=== PATIENT | male | born 1955 | race Caucasian/White ===

== ENCOUNTER 2019-04-08 10:37 | Emergency (ER) | payer BC, OTHER, SELFPAY ==
[2019-04-08] MEDS ORDERED: PANTOPRAZOLE 40 MG INJ ONE (11:02)
[2019-04-08] MEDS ORDERED: NA CHLORIDE 0.9% 1,000 ML ONE (11:02)
[2019-04-08] MEDS ORDERED: FENTANYL CITR 100 MCG/2 ML ONE (11:02)
[2019-04-08 11:04] LABS: Arterial Blood Carboxyhemoglob 1.3 % (0-1.5); Blood Gas Oxyhemoglobin 97.2 % (94-97); Blood O2 Saturation 99.2 % (92-98.5)
--- NOTE | 2019-04-08 11:19 | RAD REPORT ---
EXAM DESCRIPTION: RAD - Chest Single View - 04/08/2019 10:51 am CLINICAL HISTORY: Chest pain, abdominal pain, vomiting COMPARISON: None. TECHNIQUE: AP portable chest image was obtained 1048 hours . FINDINGS: Lungs are clear. Heart and vasculature are normal. No measurable pleural effusion and no p neumothorax. No acute bony abnormality seen. No acute aortic findings suspected. IMPRESSION: No acute cardiopulmonary process.
[2019-04-08] MEDS ORDERED: ONDANSETRON 4 MG/2 ML VIAL ONE ×2 (11:21→13:30)
[2019-04-08 11:25] LABS: AST/SGOT 16 U/L (15-37); Albumin 4.9 g/dL (3.4-5.0); BUN Blood Urea Nitrogen 19 mg/dL (7-18); Bilirubin Total 0.7 mg/dL (0.2-1.0); Troponin (Emerg Dept Use Only) < 0.02 ng/mL (0.0-0.045)
[2019-04-08] MEDS ORDERED: PIPER/TAZO/NS 3.375gm 3.375 GM/100 ML BAG ONE (11:26)
[2019-04-08] MEDS ORDERED: MAGNESIUM SULFATE 1 gm IVPB 1 GM/100 ML BAG IV ONE (11:45)
[2019-04-08 11:58] LABS: RBC Red Blood Cell Count 4.45 M/uL (4.33-5.43)
[2019-04-08 11:59] LABS: Hematocrit 41.7 % (39.6-49.0)
[2019-04-08 12:00] LABS: Basophils % 0.3 % (0-1.3); Eosinophils % 0.1 % (0-4.4); Lymphocytes % 5.8 % (15.3-44.8); MPV 9.6 fL (7.6-11.3); Monocytes % 5.5 % (3.3-12.3)
[2019-04-08 12:01] LABS: Absolute Lymphocytes (CBC) 0.7 K/uL (0.7-4.9); Absolute Monocytes 0.7 K/uL (0.1-1.3); Absolute Neutrophil 10.5 K/uL (1.8-8.0)
--- NOTE | 2019-04-08 12:06 | RAD REPORT ---
EXAM DESCRIPTION: CT - Angio Aorta For Dissection - 04/08/2019 11:54 am CLINICAL HISTORY: Chest pain radiating to the back. ABDOMINAL DISTENTION COMPARISON: No comparisons TECHNIQUE: CT angiography of the aorta was performed with MIPs. All CT scans are performed using dose optimization technique as appropriate and may include automated exposure control or mA/KV adjustment according to patient size. FINDINGS: A left aortic arch is present with normal branching pattern of the great vessels.No acute aortic finding is seen such as aneurysm, penetrating ulcer or dissection. Atherosclerosis is present throughout the thoracic abdominal aorta. The celiac axis, SMA, CHARU and renal arteries are patent. No evidence of pulmonary embolism. The lungs are emphysematous but clear. Small hiatal hernia. The liver demonstrates no focal mass or biliary dilatation.The spleen, pancreas, adrenal glands and r ight kidney are within normal limits for arterial phase imaging.Solid mass is seen the inferior midpo le left kidney measuring 3.4 x 3.3 cm. No bowel obstruction, free fluid or abscess.No pathologic enlarged lymphadenopathy identified. No fracture or worrisome bone lesion seen. IMPRESSION: No acute aortic finding is demonstrated. Solid left renal mass (3.4 x 3.3 cm) likely representing renal cell carcinoma.
[2019-04-08 12:10] LABS: Protime INR 1.04
[2019-04-08 12:45] LABS: Blood Morphology Comment NOT SEEN (NOT SEEN); Platelet Estimate ADEQ
[2019-04-08 13:13] LABS: Urine Blood NEGATIVE (NEG); Urine Glucose NEGATIVE (NEG); Urine Protein NEGATIVE (NEG); Urine Specific Gravity 1.015 (1.005-1.030); Urine pH 8.5 (5.0-7.0)
[2019-04-08 13:32] LABS: Potassium 3.9 mmol/L (3.5-5.1); Sodium Level 143 mmol/L (136-145)
[2019-04-08 13:33] LABS: Bicarbonate 18 mmol/L (21-32); Glucose Level 186 mg/dL (74-106)
--- NOTE | 2019-04-08 13:33 | ER ---
Nurse's Notes [facility] Name: Devang Whitney Age: 63 yrs Sex: Male : 1955 Arrival Date: 04/08/2019 Time: 10:39 Bed 4 Private MD: Diagnosis: Vomiting;Abdominal tenderness-right 3.3x3.4 cm solid renal mass, cw renal cell carcinoma;Dyspnea;Essential (primary) hypertension;Headache;Unspecified kidney failure-insufficency Presentation: 04/08 10:45 Presenting complaint: Patient states: vomiting started at 0700 this morning, feels like iw he ruptured something inside, appears pale, denies chest pain, c/o extreme nausea, and dizziness, hx of vertigo. Transition of care: patient was not received from another setting of care. Onset of symptoms was April 08, 2019. Risk Assessment: Do you want to hurt yourself or someone else? Patient reports no desire to harm self or others. Initial Sepsis Screen: Does the patient meet any 2 criteria? No. Patient's initial sepsis screen is negative. Does the patient have a suspected source of infection? No. Patient's initial sepsis screen is negative. Care prior to arrival: None. 10:45 Method Of Arrival: Wheelchair iw 10:45 Acuity: POLLY 2 iw Triage Assessment: 10:42 General: Appears distressed, Behavior is cooperative, agitated. Pain:. Neuro: Reports tw2 dizziness. Respiratory: Reports shortness of breath at rest Onset: The symptoms/episode began/occurred this morning, the patient has moderate shortness of breath. Respiratory: Airway is patent Respiratory effort is even, labored, Respiratory pattern is tachypnea. GI: Reports nausea, vomiting. Historical: - Allergies: 10:48 No Known Allergies; iw - Home Meds: 10:48 Zoloft Oral [Active]; iw - PMHx: 10:48 vertigo; iw - PSHx: 10:48 None; iw - Immunization history:: Adult Immunizations unknown. - Family history:: not pertinent. - Ebola Screening: : Patient negative for fever greater than or equal to 101.5 degrees Fahrenheit, and additional compatible Ebola Virus Disease symptoms Patient denies exposure to infectious person Patient denies travel to an Ebola-affected area in the 21 days before illness onset No symptoms or risks identified at this time. - Social history:: Smoking status: unknown Patient/guardian denies using. Screenin:47 Abuse screen: Denies threats or abuse. Nutritional screening: No deficits noted. tw2 Tuberculosis screening: No symptoms or risk factors identified. Fall Risk None identified. Assessment: 10:56 General: Appears in no apparent distress. uncomfortable, Behavior is cooperative, hj anxious. Pain: Complains of pain in left upper quadrant and right upper quadrant and epigastric area Pain currently is 10 out of 10 on a pain scale. Neuro: Level of Consciousness is awake, alert, obeys commands, Oriented to person, place, time, situation, Reports dizziness. Cardiovascular: Rhythm is. Respiratory: Airway is patent Respiratory effort is even, unlabored, Respiratory pattern is tachypnea GI: Reports upper abdominal pain. : No signs and/or symptoms were reported regarding the genitourinary system. EENT: No signs and/or symptoms were reported regarding the EENT system. Derm: No signs and/or symptoms reported regarding the dermatologic system. Musculoskeletal: No signs and/or symptoms reported regarding the musculoskeletal system. 11:00 Reassessment: Patient and/or family updated on plan of care and expected duration. Pain hj level reassessed. pt still restless and states :just put me to sleep, its hard for me to breathe. 11:00 Reassessment: RT at in room for ABG;. hj 11:30 Reassessment: Patient and/or family updated on plan of care and expected duration. Pain hj level reassessed. wheeled to CT for CT Angio;. 11:50 Reassessment: wheeled back from CT:. hj 12:30 Reassessment: Patient and/or family updated on plan of care and expected duration. Pain hj level reassessed. Patient is alert, oriented x 3, equal unlabored respirations, skin warm/dry/pink. awaiting POC;. 13:30 Reassessment: Patient and/or family updated on plan of care and expected duration. Pain hj level reassessed. Patient is alert, oriented x 3, equal unlabored respirations, skin warm/dry/pink. awaiting results; in room;. 14:25 Reassessment: awaiting CT head and transfer orders;. hj 15:30 Reassessment: RECD REPORT FROM DARRLE RN. [facility] TRANSFER PENDING, VS STABLE ON MONITOR. bp 16:15 Reassessment: GIVING REPORT TO [facility], ADMIN APPROVAL PENDING. bp 16:36 Reassessment: REPORT TO ANDREA JONES FOR TRANSFER TO [facility]. TRANSPORT PENDING. bp 18:01 Reassessment: PT BRETT WITH [facility]. bp Vital Signs: 10:46 BP 198 / 81; Pulse 71; Resp 26 S; Pulse Ox 100% on R/A; Weight 97.07 kg; Pain 0/10; iw 10:55 BP 192 / 80; Pulse 80; Resp 18; Pulse Ox 100% on R/A; hj 11:25 BP 149 / 106; Pulse 73; Resp 18; Pulse Ox 100% on 2 lpm NC; hj 12:12 BP 150 / 99; Pulse 72; Resp 18; Pulse Ox 100% on 2 lpm NC; hj 12:42 BP 148 / 100; Pulse 85; Resp 18; Pulse Ox 98% on 2 lpm NC; hj 12:49 BP 184 / 97; Pulse 73; Resp 18; Pulse Ox 100% on 2 lpm NC; hj 13:49 BP 205 / 103; Pulse 93; Resp 18; Temp 98.3; Pulse Ox 100% on 2 lpm NC; em1 14:26 BP 200 / 90; Pulse 85; Resp 18; Pulse Ox 100% on R/A; hj 15:09 BP 187 / 75; Pulse 81; Resp 18; Pulse Ox 100% on 2 lpm NC; hj 15:35 BP 185 / 72; Pulse 85; Resp 18; Pulse Ox 100% on R/A; hj 16:36 BP 175 / 87; Pulse 83; Resp 18; Temp 98.3; Pulse Ox 100% ; bp ED Course: 10:39 Patient arrived in ED. as 10:40 Justyna Spencer FNP-C is [facility]. snw 10:40 Geraldo Fishman MD is Attending Physician. snw 10:42 Placed in gown. Bed in low position. monitor and storage bin tender on. Pulse ox on. NIBP on. tw2 JOSE Jansen and Dr. Fishman at bedside at this time. 10:45 Initial lab(s) drawn, by me, sent to lab. T\T\S collected, blood band applied to patient. em Inserted saline lock: 20 gauge in left antecubital area, using aseptic technique. Blood collected. 10:45 EKG done, by ED staff, reviewed by Geraldo Fishman MD. jb1 10:46 Triage completed. iw 10:46 Jose Nuñez, RN is Primary Nurse. hj 10:46 Arm band placed on. iw 10:50 XRAY Chest (1 view) In Process Unspecified. EDMS 10:57 Radiology exam delayed due to lab results not completed at this time. (BUN/Creatinine). kw1 11:54 CT Aorta for Dissection In Process Unspecified. EDMS 13:50 CT Head Brain wo Cont In Process Unspecified. EDMS 16:21 Primary Nurse role handed off by Jose Nuñez, RN bp 16:21 Darvin Melendez, KAREN is Primary Nurse. bp 16:37 No provider procedures requiring assistance completed. Patient transferred, IV remains bp in place. Administered Medications: 10:45 Drug: ProTONIX 40 mg Route: IVP; Site: left antecubital; hj 11:17 Follow up: Response: No adverse reaction hj 10:46 Drug: NS 0.9% 1000 ml Route: IV; Rate: 125 ml/hr; Site: left antecubital; hj 10:46 Drug: fentaNYL (PF) 25 mcg Route: IVP; Site: left antecubital; hj 11:17 Follow up: Response: No adverse reaction; Pain is decreased hj 11:05 Drug: Zofran 4 mg Route: IVP; Site: left antecubital; hj 11:17 Follow up: Response: No adverse reaction hj 11:05 Drug: fentaNYL (PF) 25 mcg Route: IVP; Site: left antecubital; hj 11:16 Follow up: Response: No adverse reaction; Nausea is decreased hj 11:07 Drug: Zosyn 3.375 grams Route: IVPB; Infused Over: 60 mins; Site: left antecubital; hj 11:27 Drug: NS 0.9% 1000 ml Route: IV; Rate: 1 bolus; Site: left antecubital; hj 11:30 Drug: Magnesium Sulfate 1 grams Route: IVPB; Infused Over: 1 hrs; Site: left hj antecubital; 15:11 Follow up: IV Status: Completed infusion; IV Intake: 100ml hj 13:45 Drug: Zofran 4 mg Route: IVP; Site: left antecubital; hj 15:13 Follow up: Response: No adverse reaction; Nausea is decreased hj Intake: 15:11 IV: 100ml; Total: 100ml. hj Outcome: 13:32 ER care complete, transfer ordered by MD. alberto 18:01 Transferred by ground EMS to [facility] bp 18:01 Condition: stable 18:01 Instructed on the need for transfer. 18:02 Patient left the ED. bp Signatures: Dispatcher [employer] EDSami Villalobos jb1 Geraldo Fishman MD MD cha Therrien, Shelly, MANAGER UTILITIES-C MANAGER UTILITIES-Csnw Bj Kaur, CLINICAL DATA ASSISTANT CLINICAL DATA ASSISTANT em Lainey Jules Irene, RN RN iw Aroldo Jules em1 Jose Nuñez RN RN Cece Velasquez RN RN tw2 Darvin Melendez RN RN Christine Rhodes 1 Corrections: (The following items were deleted from the chart) 11:26 11:25 BP 149 / 106; Pulse 73bpm; Resp 18bpm; Pulse Ox 100% Non-rebreather mask; hj hj 12:12 11:25 BP 149 / 106; Pulse 73bpm; Resp 18bpm; Pulse Ox 100%; hj hj 12:45 12:42 BP 121 / 67; Pulse 85bpm; Resp 18bpm; Pulse Ox 98% 2 lpm Nasal Cannula; hj hj
--- NOTE | 2019-04-08 13:33 | EDPHYS ---
Physician Documentation [facility] Name: Devang Whitney Age: 63 yrs Sex: Male : 1955 Arrival Date: 04/08/2019 Time: 10:39 Bed 4 Private MD: Geraldo Branham HPI: 04/08 10:44 This 63 yrs old Male presents to ER via Unassigned with complaints of remy Breathing Difficulty. 10:44 The patient has shortness of breath at rest, with light activity. Onset: The remy symptoms/episode began/occurred this morning. Duration: The symptoms are continuous, and are steadily getting worse. The patient's shortness of breath is aggravated by coughing, supine position, talking. Associated signs and symptoms: Pertinent positives: chest pain, diaphoresis. Severity of symptoms: At their worst the symptoms were moderate in the emergency department the symptoms are unchanged. The patient has not experienced similar symptoms in the past. Historical: - Allergies: 10:48 No Known Allergies; iw - Home Meds: 10:48 Zoloft Oral [Active]; iw - PMHx: 10:48 vertigo; iw - PSHx: 10:48 None; iw - Immunization history:: Adult Immunizations unknown. - Family history:: not pertinent. - Ebola Screening: : Patient negative for fever greater than or equal to 101.5 degrees Fahrenheit, and additional compatible Ebola Virus Disease symptoms Patient denies exposure to infectious person Patient denies travel to an Ebola-affected area in the 21 days before illness onset No symptoms or risks identified at this time. - Social history:: Smoking status: unknown Patient/guardian denies using. ROS: 10:45 Eyes: Negative for injury, pain, redness, and discharge, ENT: Negative for injury, remy pain, and discharge, Neck: Negative for injury, pain, and swelling, Back: Negative for injury and pain, : Negative for injury, bleeding, discharge, and swelling, MS/Extremity: Negative for injury and deformity, Neuro: Negative for headache, weakness, numbness, tingling, and seizure, Psych: Negative for depression, anxiety, suicide ideation, homicidal ideation, and hallucinations, Allergy/Immunology: Negative for hives, rash, and allergies, Endocrine: Negative for neck swelling, polydipsia, polyuria, polyphagia, and marked weight changes. 10:45 Constitutional: Positive for malaise. 10:45 Cardiovascular: Positive for chest pain. 10:45 Respiratory: Positive for cough, shortness of breath, at rest. 10:45 Abdomen/GI: Positive for abdominal pain, nausea and vomiting, abdominal cramps. 10:45 Skin: Positive for diaphoresis, pallor. Exam: 10:45 Head/Face: Normocephalic, atraumatic. Eyes: Pupils equal round and reactive to light, remy extra-ocular motions intact. Lids and lashes normal. Conjunctiva and sclera are non-icteric and not injected. Cornea within normal limits. Periorbital areas with no swelling, redness, or edema. ENT: Nares patent. No nasal discharge, no septal abnormalities noted. Tympanic membranes are normal and external auditory canals are clear. Oropharynx with no redness, swelling, or masses, exudates, or evidence of obstruction, uvula midline. Mucous membranes moist. Neck: Trachea midline, no thyromegaly or masses palpated, and no cervical lymphadenopathy. Supple, full range of motion without nuchal rigidity, or vertebral point tenderness. No Meningismus. Chest/axilla: Normal chest wall appearance and motion. Nontender with no deformity. No lesions are appreciated. Respiratory: Lungs have equal breath sounds bilaterally, clear to auscultation and percussion. No rales, rhonchi or wheezes noted. No increased work of breathing, no retractions or nasal flaring. Back: No spinal tenderness. No costovertebral tenderness. Full range of motion. Male : Normal genitalia with no discharge or lesions. MS/ Extremity: Pulses equal, no cyanosis. Neurovascular intact. Full, normal range of motion. Neuro: Awake and alert, GCS 15, oriented to person, place, time, and situation. Cranial nerves II-XII grossly intact. Motor strength 5/5 in all extremities. Sensory grossly intact. Cerebellar exam normal. Normal gait. Psych: Awake, alert, with orientation to person, place and time. Behavior, mood, and affect are within normal limits. 10:45 Constitutional: The patient appears in obvious distress, mildly distressed, moderately distressed. 10:45 Cardiovascular: Rate: normal, Rhythm: regular, Pulses: Pulses are 4+ in bilateral radial, brachial, femoral, popliteal, posterior tibial and and dorsalis pedis arteries.. 10:45 Respiratory: mild respiratory distress is noted, Respirations: labored breathing, that is mild, Breath sounds: are clear throughout, Respiratory rate: 26 10:45 Abdomen/GI: Inspection: abdomen appears normal, Bowel sounds: normal, Palpation: mild abdominal tenderness, in the epigastric area, right upper quadrant and left upper quadrant, Liver: no appreciated palpable abnormalities, Hernia: not appreciated. 10:45 Skin: Appearance: Color: pale, Temperature: cool, Moisture: diaphoretic, petechiae, not noted, ecchymosis, not noted, flushing, not noted, diaphoresis is noted. 10:46 Eyes: Pupils equal round and reactive to light, extra-ocular motions intact. Lids and snw lashes normal. Conjunctiva and sclera are non-icteric and not injected. Cornea within normal limits. Periorbital areas with no swelling, redness, or edema. ENT: Nares patent. No nasal discharge, no septal abnormalities noted. Tympanic membranes are normal and external auditory canals are clear. Oropharynx with no redness, swelling, or masses, exudates, or evidence of obstruction, uvula midline. Mucous membranes moist. Neck: Trachea midline, no thyromegaly or masses palpated, and no cervical lymphadenopathy. Supple, full range of motion without nuchal rigidity, or vertebral point tenderness. No Meningismus. Chest/axilla: Normal chest wall appearance and motion. Nontender with no deformity. No lesions are appreciated. Cardiovascular: Regular rate and rhythm with a normal S1 and S2. No gallops, murmurs, or rubs. Normal PMI, no JVD. No pulse deficits. 10:46 Abdomen/GI: Soft, non-tender, with normal bowel sounds. No distension or tympany. No guarding or rebound. No evidence of tenderness throughout. Back: No spinal tenderness. No costovertebral tenderness. Full range of motion. 10:46 Constitutional: The patient appears alert, anxious, diaphoretic, in obvious distress, moderately distressed, pale, restless. 10:46 Head/face: centrally cyanotic. 10:46 Respiratory: the patient does not display signs of respiratory distress, Respirations: shallow respirations, tachypnea, Breath sounds: are clear throughout. 10:46 Skin: Appearance: Color: pale, Temperature: warm, Moisture: diaphoretic, swelling, is not appreciated. 10:46 Neuro: Orientation: is normal, Mentation: is normal, Memory: is normal, seizure activity, is not displayed by the patient, Abnormal movements: there are no abnormal movements. 10:48 ECG was reviewed by the Attending Physician. formerly [facility] Vital Signs: 10:46 BP 198 / 81; Pulse 71; Resp 26 S; Pulse Ox 100% on R/A; Weight 97.07 kg; Pain 0/10; iw 10:55 BP 192 / 80; Pulse 80; Resp 18; Pulse Ox 100% on R/A; hj 11:25 BP 149 / 106; Pulse 73; Resp 18; Pulse Ox 100% on 2 lpm NC; hj 12:12 BP 150 / 99; Pulse 72; Resp 18; Pulse Ox 100% on 2 lpm NC; hj 12:42 BP 148 / 100; Pulse 85; Resp 18; Pulse Ox 98% on 2 lpm NC; hj 12:49 BP 184 / 97; Pulse 73; Resp 18; Pulse Ox 100% on 2 lpm NC; hj 13:49 BP 205 / 103; Pulse 93; Resp 18; Temp 98.3; Pulse Ox 100% on 2 lpm NC; em1 14:26 BP 200 / 90; Pulse 85; Resp 18; Pulse Ox 100% on R/A; hj 15:09 BP 187 / 75; Pulse 81; Resp 18; Pulse Ox 100% on 2 lpm NC; hj 15:35 BP 185 / 72; Pulse 85; Resp 18; Pulse Ox 100% on R/A; hj 16:36 BP 175 / 87; Pulse 83; Resp 18; Temp 98.3; Pulse Ox 100% ; bp MDM: 10:41 Patient medically screened. formerly [facility] 10:44 Patient medically screened. [facility] 10:49 Data reviewed: vital signs, nurses notes, lab test result(s), EKG, radiologic studies, [facility] CT scan, plain films. 04/08 10:40 Order name: Basic Metabolic Panel; Complete Time: 16:09 [facility] 04/08 10:40 Order name: CBC with Diff; Complete Time: 13:23 [facility] 04/08 10:40 Order name: LFT's; Complete Time: 16:09 [facility] 04/08 10:40 Order name: Magnesium; Complete Time: 16:09 [facility] 04/08 10:40 Order name: NT PRO-BNP; Complete Time: 16:09 snw 04/08 10:40 Order name: PT-INR; Complete Time: 13:23 snw 04/08 10:40 Order name: Troponin (emerg Dept Use Only); Complete Time: 16:09 snw 04/08 10:40 Order name: TS; Complete Time: 13:23 snw 04/08 10:44 Order name: ABG; Complete Time: 11:26 [facility] 04/08 10:44 Order name: Urine Culture [facility] 04/08 11:19 Order name: Lipase; Complete Time: 16:09 EDMS 04/08 12:07 Order name: ABO/RH no charge; Complete Time: 12:10 EDMS 04/08 12:44 Order name: Manual Differential; Complete Time: 13: EDMI 04/08 10:40 Order name: XRAY Chest (1 view); Complete Time: 11:26 sn 04/08 10:40 Order name: EKG; Complete Time: 10:41 [facility] 04/08 10:40 Order name: Cardiac monitoring; Complete Time: 10:42 [facility] 04/08 10:40 Order name: EKG - Nurse/Tech; Complete Time: 10:42 [facility] 04/08 10:40 Order name: CT Aorta for Dissection; Complete Time: 12:10 [facility] 04/08 13:09 Order name: Urine Dipstick--Ancillary (enter results); Complete Time: 13:23 [facility] 04/08 13:28 Order name: CT Head Brain wo Cont; Complete Time: 16:09 [facility] 04/08 10:40 Order name: IV Saline Lock; Complete Time: 10:54 [facility] 04/08 10:40 Order name: Labs collected and sent; Complete Time: 10:54 [facility] 04/08 10:40 Order name: O2 Per Protocol; Complete Time: 10:42 [facility] 04/08 10:40 Order name: O2 Sat Monitoring; Complete Time: 10:43 [facility] 04/08 10:44 Order name: IV Saline Lock - Large Bore; Complete Time: 10:45 [facility] 04/08 10:44 Order name: Urine Dipstick-Ancillary (obtain specimen); Complete Time: 13:09 [facility] Administered Medications: 10:45 Drug: ProTONIX 40 mg Route: IVP; Site: left antecubital; hj 11:17 Follow up: Response: No adverse reaction hj 10:46 Drug: NS 0.9% 1000 ml Route: IV; Rate: 125 ml/hr; Site: left antecubital; hj 10:46 Drug: fentaNYL (PF) 25 mcg Route: IVP; Site: left antecubital; hj 11:17 Follow up: Response: No adverse reaction; Pain is decreased hj 11:05 Drug: Zofran 4 mg Route: IVP; Site: left antecubital; hj 11:17 Follow up: Response: No adverse reaction hj 11:05 Drug: fentaNYL (PF) 25 mcg Route: IVP; Site: left antecubital; hj 11:16 Follow up: Response: No adverse reaction; Nausea is decreased hj 11:07 Drug: Zosyn 3.375 grams Route: IVPB; Infused Over: 60 mins; Site: left antecubital; hj 11:27 Drug: NS 0.9% 1000 ml Route: IV; Rate: 1 bolus; Site: left antecubital; hj 11:30 Drug: Magnesium Sulfate 1 grams Route: IVPB; Infused Over: 1 hrs; Site: left hj antecubital; 15:11 Follow up: IV Status: Completed infusion; IV Intake: 100ml hj 13:45 Drug: Zofran 4 mg Route: IVP; Site: left antecubital; hj 15:13 Follow up: Response: No adverse reaction; Nausea is decreased hj Disposition: 10:48 Co-signature as Attending Physician, Geraldo Fishman MD I agree with the assessment and remy plan of care. Disposition: 04/08/19 13:[address] [facility]. Diagnosis are Vomiting, Abdominal tenderness - right 3.3x3.4 cm solid renal mass, cw renal cell carcinoma, Dyspnea, Essential (primary) hypertension, Headache, Unspecified kidney failure - insufficency. - Reason for transfer: Higher level of care. - Accepting physician is to ar. - Condition is Fair. - Problem is new. - Symptoms have improved. Signatures: Dispatcher [employer] Geraldo Torrez MD MD cha Therrien, Shelly, MISSILE MECHANIC-C MISSILE MECHANIC-Csnw Khushbu Trejo RN RN iw Joaquin, Henry, RN RN hj Peltier, Brian, RN RN bp Corrections: (The following items were deleted from the chart) 11:20 10:44 LIPASE+C.LAB.BRZ ordered. EDMI EDMS 16:25 13:32 04/08/2019 13:32 Transfer ordered to [facility]. Diagnosis is Vomiting; Abdominal tenderness; Dyspnea; Essential (primary) hypertension; Headache; Unspecified kidney failure - insufficency. Reason for transfer: Higher level of care. Accepting physician is to ar. Condition is Fair. Problem is new. Symptoms have improved. [facility] 18:02 16:25 04/08/2019 13:32 Transfer ordered to [facility]. Diagnosis is Vomiting; Abdominal tenderness - right 3.3x3.4 cm solid renal mass, cw renal cell carcinoma; Dyspnea; Essential (primary) hypertension; Headache; Unspecified kidney failure - insufficency. Reason for transfer: Higher level of care. Accepting physician is to ar. Condition is Fair. Problem is new. Symptoms have improved. [facility]
[2019-04-08 13:34] LABS: ALT/SGPT 21 U/L (12-78); Alkaline Phosphatase 83 U/L (45-117)
[2019-04-08 13:35] LABS: Bilirubin Direct 0.2 mg/dL (0-0.2); Protein, Total 7.7 g/dL (6.4-8.2)
[2019-04-08 13:36] LABS: NT PRO-BNP 350 pg/mL (<125)
[2019-04-08 13:39] LABS: Magnesium 1.7 mg/dL (1.8-2.4)
[2019-04-08 13:41] LABS: Lipase 108 U/L (73-393)
--- NOTE | 2019-04-08 14:29 | RAD REPORT ---
EXAM DESCRIPTION: CT - Head Brain Wo Cont - 04/08/2019 2:13 pm CLINICAL HISTORY: Headache and dizziness COMPARISON: None. TECHNIQUE: Computed axial tomography of the head was obtained. IV contrast was not requested. All CT scans are performed using dose optimization technique as appropriate and may include automated exposure control or mA/KV adjustment according to patient size. FINDINGS: Contrast from an earlier CT examination is present within the vascular system. An intracranial bleed is not seen . The ventricles are normal in caliber. No extra-axial fluid collection is noted. Fluid within the sinuses/ mastoids is not seen. IMPRESSION: No acute intracranial abnormality is seen. If patient's symptoms persist MRI of the bra in would be recommended.
--- NOTE | 2019-04-09 09:20 | EKG ---
Test Date: 2019-04-08 Test Time: 11:35:14 Physical Therapy Manager: CRISTIANO MEASUREMENT RESULTS: Intervals: Rate: 72 [place]: 174 QRSD: 82 QT: 418 QTc: 457 [place]: P: 70 [place]: 174 QRS: 32 T: 4 INTERPRETIVE STATEMENTS: Sinus rhythm with marked sinus arrhythmia Possible Left atrial enlargement Nonspecific T wave abnormality Abnormal ECG Compared to ECG 04/08/2019 10:41:54 No significant changes Electronically Signed On 04-09-19 09:19:38 CDT by Jason Herron
--- NOTE | 2019-04-09 09:20 | EKG ---
Test Date: 2019-04-08 Test Time: 10:41:54 Hospital Insurance Clerk: CRISTIANO MEASUREMENT RESULTS: Intervals: Rate: 66 [place]: 172 QRSD: 88 QT: 432 QTc: 452 [place]: P: 65 [place]: 172 QRS: 26 T: 30 INTERPRETIVE STATEMENTS: Sinus rhythm with marked sinus arrhythmia Nonspecific T wave abnormality Abnormal ECG Compared to ECG 04/08/2019 10:40:26 T-wave abnormality now present ST (T wave) deviation no longer present Electronically Signed On 04-09-19 09:19:45 CDT by Jason Herron
== END 2019-04-08 18:02 ==
LOC: ER 10:37
DX: R11.10 Vomiting, unspecified (principal); C64.9 Malignant neoplasm of unspecified kidney, except renal pelvis; N19 Unspecified kidney failure; I10 Essential (primary) hypertension; R51 Headache
CPT/HCPCS: 36415; 70450; 71045; 71275; 74175; 80048; 80076; 81003; 82805; 83690; 83735; 83880; 84484; 85025; 85610; 86850; 86900; 86901; 87086; 87088; 93005; 96365; 96366; 96375; 99285; C9113; J2405; J2543; J3010; J3475; J7030; Q9967

== ENCOUNTER 2022-04-19 13:21 | Observation (INO) | payer OTHER ==
--- OUTSIDE RECORDS SUMMARY | 2022-04-19 13:23 | XMS REPORT | Continuity of Care Document ---
:1955 Author Organization [facility] t Address [facility] [address] [place] [address] Care Team Providers Name Role Phone Minal Cai Attending Clinician Minal GRANT Attending Clinician Unavailable Minal GRANT Admitting Clinician Unavailable Payers Payer Name Policy Type Policy Number Effective Date Expiration Date Rohit HAMPTON [id number] 2018 ADMINISTRATION 00:00:00 Problems Condition Condition Condition Status Onset Resolution Last Treating Co mments Source Name Details Category Date Date Treatment Clinician Date No known No known Disease Unive rs active active ity of problems problems [facility] Allergies, Adverse Reactions, Alerts Allergy Allergy Status Severity Reaction(s) Onset Inactive Treating Comm ents Source Name Type Date Date Clinician NO KNOWN Drug Active Univers ALLERGIE Class ity of S [facility] Social History Social Habit Start Date Stop Date Quantity Comments Source Sex Assigned At Uni versity [facility] Smoking Status Start Date Stop Date Source Unknown if ever smoked Universit y [facility] Medications Ordered Filled Start Stop Current Ordering Indication Dosage Frequency Signature Comments Components Source Medication Medication Date Date Medication? Clinician (SIG) Name Name morpHINE 2019- No 4mg 4 mg, Slow Un yaya injection 4 07-16 IV Push, ity of mg 20:45: 19:45 ONCE, 1 [place] 00 :00 dose, Mon Medical 07/16/19 at Branch 1545, STAT ondansetron 2018- No 4mg 4 mg, Slow Univers (ZOFRAN 07-16 IV Push, ity of (PF)) 19:30: 18:29 ONCE, 1 [place] injection 4 00 :00 dose, Mon Med ical mg 07/16/19 at Branch 1430, LAUREN cefTRIAXone 2019- No 1000mg 1,000 mg, Univers (ROCEPHIN) 8-19 08-19 IV ity of 1,000 mg in 19:30: 19:02 Piggyback, [place] NaCl 0.9% 00 :00 ONCE, 1 Medical (NS) 50 mL dose, [facility] ch MINI-BAG 07/16/19 at 1430, 50 mL
Reas on for Anti-Infec tive: Empiric Therapy for Suspected Infection< br>Empiric Therapy Site: Abdominal< br>Duratio n of therapy: 72 hours morpHINE 2019- No 4mg 4 mg, Slow Un yaya injection 4 07-16 IV Push, ity of mg 19:30: 18:29 ONCE, 1 [place] 00 :00 dose, [facility] Medical 07/16/19 at Branch 1430, STAT metoclopram 2019- No 10mg 10 mg, Uni vers ivory HCl 07-16 Slow IV ity of (REGLAN) 18:45: 17:33 Push, [place] injection 00 :00 ONCE, 1 Medical 10 mg dose, [facility] 07/16/19 at 1345, LAUREN ondansetron 2019- No 4mg 4 mg, Slow Univers (ZOFRAN 07-16 IV Push, ity of (PF)) 18:15: 17:07 ONCE, 1 [place] injection 4 00 :00 dose, [facility] Med ical mg 07/16/19 at Branch 1315, LAUREN FENTanyl PF 2019- No 50ug 50 mcg, Un yaya (SUBLIMAZE 07-16 Slow IV ity o f (PF)) 18:15: 17:07 Push, [place] injection 00 :00 ONCE, 1 Medical 50 mcg dose, [facility] 07/16/19 at 1315, Routine NaCl 0.9% 2019- No 1000mL at 999 Uni vers (NS) bolus 07-16 mL/hr, ity of infusion 17:30: 18:38 1,000 mL, Ariel as 1,000 mL 00 :00 IV Medical Infusion, [place] ONCE, 1 dose, [facility] 07/16/19 at 1230, LAUREN sertraline Yes Take by Uni vers HCl (ZOLOFT 07-16 mouth. ity of ORAL) 16:45: [place] 52 [facility] Branch Vital Signs Vital Name Observation Time Observation Value Comments Source Systolic blood 2019-07-16 19:44:44 188 mm[Hg] [facility] [place] Diastolic blood 2019-07-16 19:44:44 92 mm[Hg] [facility] Heart rate 2019-07-16 19:44:44 78 /min [facility] Respiratory rate 2019-07-16 19:44:44 16 /min [facility] Oxygen saturation in 2019-07-16 19:44:44 98 /min [facility] Arterial blood by [facility] Pulse oximetry Branch Body temperature 2019-07-16 16:39:00 37.83 [facility] Body height 2019-07-16 16:39:00 182.9 cm [facility] Body weight 2019-07-16 16:39:00 97.07 kg [facility] BMI 2019-07-16 16:39:00 29.02 kg/m2 [facility] Procedures Procedure Date / Time Performing Clinician Source Performed CT ABDOMEN PELVIS WO 2019-07-16 17:50:18 Leonard Grant [facility] COMP. METABOLIC PANEL 2019-07-16 17:05:00 Leonard Grant [facility] ([id number]) [facility] PROTHROMBIN TIME / INR 2019-07-16 17:05:00 Leonard Grant [facility] ACTIVATED PARTIAL 2019-07-16 17:05:00 Leonard Grant [facility] CBC WITH DIFFERENTIAL 2019-07-16 17:05:00 Leonard Grant [facility] LACTIC ACID WHOLE BLOOD 2019-07-16 17:04:00 Leonard [facility] Encounters Start End Encounter Admission Attending Care Care Encounter Source Date/Time Date/Time Type Type Clinicians Facility Department ID 2019-07-16 2019-07-16 Emergency [facility] [id number] Univers 11:38:56 15:06:00 Leonard Abdi [id number] i ty [facility] [id number] [facility] [id number] [facility] 084 Branch 2019-07-16 2019-07-16 Emergency X JUANITA RUST ERT [id number] 59 [facility] 11:38:56 15:06:00 LEON[facility] [place] [facility] Results Test Test Test Results Result Source Description Time Comments Comments CT ABDOMEN 1. Postoperative changes University of PELVIS WO 19 of partial nephrectomy of [place] [facility] CONTRAST 18:13:29 the left kidney withsmall Branch amount of fluid in the perirenal space and inflammatory congestion inthe perirenal space, likely postoperative changes.2. Large amount of free intraperitoneal air extending cranially into themediastinum and caudally into the left inguinal canal.3. Large volume of subcutaneous emphysema likely postoperative4. Small amount of air in the urinary bladder may be related to recentinstrumentation. * * * * * * * * ORIGINAL REPORT * * * * * * * *EXAM: CT SCAN OF THE ABDOMEN AND PELVIS WITHOUT CONTRAST HISTORY:?Abd pain, acute, generalized recent left nephrectomy, severe LLQ,left pelvic pain TECHNIQUE:3 mm axial images are obtained from diaphragmatic domes tosymphysis pubis without oral or intravenous contrast. Sagittal and coronalreformations are carried out. COMPARISON: None FINDINGS:The lung bases are clear. Small amount of air is seen in themediastinum. No pleural effusion is present. Heart size is normal. Liver is normal in size shape and appearance. No definite focal masses arepresent within the liver. Gallbladder is normal. No calcified gallstones are seen. No biliary treedilation is noted. Pancreas is grossly normal. Spleen is normal. Adrenal glands are normal in size. Right kidney is normal. Changes of partial nephrectomy of the inferior pole of the left kidney areseen with surgical sutures noted at the surgical bed. Mild inflammatorycongestion is seen surrounding the surgical site. Trace amount of fluid ispresent in the pararenal space. Abdominal aorta is normal in caliber. Atherosclerotic calcificationsinvolve the abdominal aorta and iliac arteries. Large amount of free air is seen in the peritoneal cavity majority of theair is localized to the right side of the abdomen. The free air tracks intothe left inguinal canal and cranially into the mediastinum. Also seen isair in the subcutaneous soft tissues of the left side of the abdomentracking to the level of the lower chest and cranially and in the leftflank. A hiatal hernia is present. The bowel loops are normal in caliber. Appendixis normal. The urinary bladder is relatively well distended. Small pockets of air areseen within the bladder. The prostate gland is slightly enlarged in size.Multiple phleboliths are noted in the pelvis. Changes of degenerative spondylosis are seen throughout the lumbar spinemore pronounced at L4-L5. [facility], Radiant Results Inft User - 07/16/2019 1:15 PM CDT* * * * * * * * ORIGINAL REPORT * * * * * * * *EXAM: CT SCAN OF THE ABDOMEN AND PELVIS WITHOUT CONTRASTHISTORY: Abd pain, acute, generalized recent left nephrectomy, severe LLQ,left pelvic painTECHNIQUE:3 mm axial images are obtained from diaphragmatic domes tosymphysis pubis without oral or intravenous contrast. Sagittal and coronalreformations are carried out.COMPARISON: NoneFINDINGS:The lung bases are clear. Small amount of air is seen in themediastinum. No pleural effusion is present. Heart size is normal.Liver is normal in size shape and appearance. No definite focal masses arepresent within the liver.Gallbladder is normal. No calcified gallstones are seen. No biliary treedilation is noted.Pancreas is grossly normal.Spleen is normal.Adrenal glands are normal in size.Right kidney is normal.Changes of partial nephrectomy of the inferior pole of the left kidney areseen with surgical sutures noted at the surgical bed. Mild inflammatorycongestion is seen surrounding the surgical site. Trace amount of fluid ispresent in the pararenal space.Abdominal aorta is normal in caliber. Atherosclerotic calcificationsinvolve the abdominal aorta and iliac arteries.Large amount of free air is seen in the peritoneal cavity majority of theair is localized to the right side of the abdomen. The free air tracks intothe left inguinal canal and cranially into the mediastinum. Also seen isair in the subcutaneous soft tissues of the left side of the abdomentracking to the level of the lower chest and cranially and in the leftflank.A hiatal hernia is present. The bowel loops are normal in caliber. Appendixis normal.The urinary bladder is relatively well distended. Small pockets of air areseen within the bladder. The prostate gland is slightly enlarged in size.Multiple phleboliths are noted in the pelvis.Changes of degenerative spondylosis are seen throughout the lumbar spinemore pronounced at L4-L5.IMPRESSION1. Postoperative changes of partial nephrectomy of the left kidney withsmall amount of fluid in the perirenal space and inflammatory congestion inthe perirenal space, likely postoperative changes.2. Large amount of free intraperitoneal air extending cranially into themediastinum and caudally into the left inguinal canal.3. Large volume of subcutaneous emphysema likely postoperative4. Small amount of air in the urinary bladder may be related to recentinstrumentation. aPTT 2019-07-16 17:50:00 Test Item Value Reference Range Interpretation Comme nts APTT Patient (test code = See_Comment [ Automated message] The 3173-2) system which ge nerated this result tra nsmitted reference range : 23 - 38 Seconds. The re ference range was not u sed to interpret this result as normal/abnormal . MICHA (test code = MICHA) The [facility] patient population mean normal value for aPTT is 30 seconds. Lab Interpretation (test Normal code = 55157-4) [facility] [place] [facility] ResourcesCOMP. METABOLIC PANEL (41582)2019-07-16 17:49:00 Test Item Value Reference Range Interpretation Comments NA (test code = 139 mmol/L 135-145 3801012884) K (test code = 5.0 mmol/L 3.5-5 9043881369) CL (test code = 107 mmol/L 98-108 7760585928) CO2 TOTAL (test code = 21 mmol/L 23-31 L 4766030700) AGAP (test code = 2-16 4819284040) BUN (test code = 28 mg/dL 7-23 H 4013920564) GLUCOSE (test code = 137 mg/dL 70-110 H 5489767419) CREATININE (test code = 1.43 mg/dL 0.6-1.25 H 4779857164) TOTAL BILI (test code = 0.6 mg/dL 0.1-1.8 3204530899) CALCIUM (test code = 9.3 mg/dL 8.6-10.6 9921111410) T PROTEIN (test code = 7.3 g/dL 6.3-8.2 5441502379) ALBUMIN (test code = 4.1 g/dL 3.5-5 6120139227) ALK PHOS (test code = 70 U/L 34-122 3188511560) ALT(SGPT) (test code = 17 U/L 9-51 0670695400) AST(SGOT) (test code = 29 U/L 13-40 3718836357) eGFR Calculation mL/min/1.73m2 (Non-) (test code = 7104612171) eGFR Calculation mL/min/1.73m2 () (test code = 7491704885) MICHA (test code = MICHA) Association of Glomerular Filtration Rate (GFR) and Staging of Kidney Disease*+ + + +| GFR (mL/min/1.73 m2)?| With Kidney Damage?|?Without Kidney Damage+ --------+ --------+ +|?>90?|?S tage one?|? Normal?+ ---------+ ---------+ +|?60-89? |?Stage two?|? Decreased GFR? + --+ --+ ------+|?30-59?|?Stage three?|? Stage three? + --+ --+ ------+|?15-29?|?Stage four? |? Stage four?+ -------+ -------+ +|?<15 (or dialysis)?|?Stage five? |? Stage five?+ -------+ -------+ +*Each stage assumes the associated GFR level has been in effect for at least three months.?Stages 1 to 5, with or without kidney disease, indicate chronic kidney disease.Notes: Determination of stages one and two (with eGFR >59mL/min/1.73 m2) requires estimation of kidney damage for at least three months as defined by structural or functional abnormalities of the kidney, manifested by either:Pathological abnormalities or Markers of kidney damage (including abnormalities in the composition of the blood or urine or abnormalities in imaging tests). Lab Interpretation Abnormal (test code = 55917-5) [facility] [place] [facility] ResourcesPROTHROMBIN TIME / [id number] 17:47:00 Test Item Value Reference Range Interpretation Comments PROTIME PATIENT (test See_Comment [Auto mated message] code = 5964-2) The system [employer] generated this result transmitted ref erence range: 12.0 - 1 4.7 Seconds. The re ference range was not u sed to interpret this result as normal/abnor mal. INR (test code = 6301-6) Nor mal INR <1.1; Warfarin Therap eutic range 2.0 to 3. 0 or 2.5 to 3.5, dep ending upon the indica tions. Lab Interpretation (test Normal code = 09547-0) [facility] [place] [facility] ResourcesCB WITH [id number] 17:22:00 Test Item Value Reference Range Interpretation Comments WBC (test code = See_Comment [Automated 6690-2) message] The sy stem which generated this result transmitted reference range : 4.20 - 10.70 10*3/?L. The reference range was not used to interpret this result as normal/abnormal . RBC (test code = See_Comment L [Automated 789-8) message] The sy stem which generated this result transmitted reference range : 4.26 - 5.52 10*6/?L. The reference range was not used to interpret this result as normal/abnormal . HGB (test code = 11.0 g/dL 12.2-16.4 L 718-7) HCT (test code = 33.0 % 38.4-49.3 L 4544-3) MCV (test code = 94.6 fL 81.7-95.6 787-2) MCH (test code = 31.5 pg 26.1-32.7 785-6) MCHC (test code = 33.3 g/dL 31.2-35 786-4) RDW-SD (test code = 42.2 fL 38.5-51.6 21539-2) RDW-CV (test code = 12.1 % 12.1-15.4 788-0) PLT (test code = See_Comment [Automated 777-3) message] The sy stem which generated this result transmitted reference range : 150 - 328 10*3/ ?L. The reference r susie was not used to interpret this result as normal/abnormal . MPV (test code = 11.3 fL 9.8-13 74332-5) NRBC/100 WBC (test See_Comment [Automat ed code = 7926243673) message] The system which generated this result transmitted reference range : 0.0 - 10.0 /100 WBCs. The refer ence range was not u sed to interpret th is result as normal/abnormal . NRBC x10^3 (test code <0.01 See_Comment [Auto mated = 9943784154) message] The s ystem which generated this result transmitted reference range : 10*3/?L. The reference range was not used to interpret this result as normal/abnormal . GRAN MAT (NEUT) % 83.6 % (test code = 770-8) IMM GRAN % (test code 0.60 % = 5620737311) LYMPH % (test code = 7.4 % 736-9) MONO % (test code = 7.5 % 5905-5) EOS % (test code = 0.7 % 713-8) BASO % (test code = 0.2 % 706-2) GRAN MAT x10^3(ANC) 7.93 10*3/uL 1.99-6.95 H (test code = 9698934936) IMM GRAN x10^3 (test 0.06 10*3/uL 0-0.06 code = 2158974635) LYMPH x10^3 (test code 0.70 10*3/uL 1.09-3.23 L = 731-0) MONO x10^3 (test code 0.71 10*3/uL 0.36-1.02 = 742-7) EOS x10^3 (test code = 0.07 10*3/uL 0.06-0.53 711-2) BASO x10^3 (test code <0.03 0.01-0.09 = 704-7) Lab Interpretation Abnormal (test code = 53534-0) [facility] [place] [facility] ResourcesLactic Acid Whole [id number] 17:12:00 Test Item Value Reference Range Interpretation Comments LACTIC ACID (test code = 2.11 mmol/L 0.5-2.2 3338690409) Lab Interpretation (test code = Normal 90672-8) [facility] [place] [facility]"
[2022-04-19 14:18] LABS: Absolute Lymphocytes (CBC) 1.6 K/uL (0.7-4.9); Hematocrit 44.8 % (39.6-49.0); Lymphocytes % 24.6 % (15.3-44.8); MPV 8.9 fL (7.6-11.3); RBC Red Blood Cell Count 4.38 M/uL (4.33-5.43)
[2022-04-19 14:24] LABS: Albumin 4.4 g/dL (3.4-5.0); Bilirubin Direct 0.1 mg/dL (0-0.2); Bilirubin Total 0.4 mg/dL (0.2-1.0); Protein, Total 8.3 g/dL (6.4-8.2)
[2022-04-19 14:25] LABS: Potassium 4.8 mmol/L (3.5-5.1)
--- NOTE | 2022-04-19 15:08 | RAD REPORT ---
EXAM DESCRIPTION: RAD - Chest Single View - 04/19/2022 2:45 pm CLINICAL HISTORY: SOB COMPARISON: Portable March 2019 TECHNIQUE: AP portable chest image was obtained 04/19/2022 2:45 pm . FINDINGS: Lungs are clear. Heart and vasculature are normal. No measurable pleural effusion and no p neumothorax. No acute bony abnormality seen. No acute aortic findings suspected. IMPRESSION: No acute cardiopulmonary process. No significant change from comparison study.
--- NOTE | 2022-04-19 15:24 | EDPHYS ---
Physician Documentation [facility] Name: Devang Whitney Age: 66 yrs Sex: Male : 1955 Arrival Date: 04/19/2022 Time: 13:27 Bed 6 Private MD: ED Physician Nate Jimenez HPI: 04/19 21:53 This 66 yrs old Male presents to ER via Wheelchair with complaints of Chest Pressure. ms3 21:53 The patient or guardian reports chest pain that is located primarily in the substernal ms3 area. Onset: 4 day(s) ago. The pain does not radiate. Associated signs and symptoms: Pertinent positives: lightheadedness, shortness of breath. The chest pain is described as dull. Duration: The patient or guardian reports a single episode. Modifying factors: The symptoms are alleviated by nothing. the symptoms are aggravated by activity. Severity of pain: At its worst the pain was a 0 / 10. Historical: - Allergies: 13:32 No Known Allergies; jd3 - Home Meds: 14:04 bupropion HCl 150 mg Oral Tb24 2 tabs once daily [Active]; lisinopril 40 mg Oral tab 1 aa5 tab once daily [Active]; amlodipine 5 mg tab once daily [Active]; quetiapine 100 mg oral tab at bedtime [Active]; - PMHx: 13:32 Vertigo; hypertension; Depressive disorder; jd3 14:04 Diabetes (lost weight and no longer diabetic); aa5 - Immunization history:: Adult Immunizations up to date, Client reports receiving the 2nd dose of the Covid vaccine, Flu vaccine is up to date. - Social history:: Smoking status: Patient denies any tobacco usage or history of. ROS: 21:53 Constitutional: Negative for fever, and chills. ENT: Negative for injury, pain, and ms3 discharge, Neck: Negative for injury, pain, and swelling. 21:53 MS/Extremity: Negative for injury and deformity, Skin: Negative for injury, rash, and discoloration. 21:53 Cardiovascular: Positive for chest pain. 21:53 Respiratory: Positive for shortness of breath. 21:53 All other systems are negative. Exam: 13:28 ECG was reviewed by the Attending Physician. ms3 21:53 Constitutional: This is a well developed, well nourished patient who is awake, alert, ms3 and in no acute distress. Head/Face: Normocephalic, atraumatic. ENT: Nares patent. No nasal discharge, no septal abnormalities noted. Tympanic membranes are normal and external auditory canals are clear. Oropharynx with no redness, swelling, or masses, exudates, or evidence of obstruction, uvula midline. Mucous membranes moist. Chest/axilla: Normal chest wall appearance and motion. Nontender with no deformity. Cardiovascular: Regular rate and rhythm with a normal S1 and S2. No gallops, murmurs, or rubs. Normal PMI, no JVD. No pulse deficits. Respiratory: Lungs have equal breath sounds bilaterally, clear to auscultation and percussion. No rales, rhonchi or wheezes noted. No increased work of breathing, no retractions or nasal flaring. Abdomen/GI: Soft, non-tender, with normal bowel sounds. No distension or tympany. No guarding or rebound. No evidence of tenderness throughout. Skin: Warm, dry with normal turgor. Normal color with no rashes, no lesions, and no evidence of cellulitis. Psych: Awake, alert, with orientation to person, place and time. Behavior, mood, and affect are within normal limits. Vital Signs: 13:33 BP 127 / 89; Pulse 99; Resp 25 S; Temp 98.4(TE); Pulse Ox 100% on R/A; Pain 0/10; jd3 14:30 BP 118 / 78; Pulse 82; Resp 22 S; Pulse Ox 100% on R/A; aa5 15:30 BP 151 / 78; Pulse 74; Resp 18 S; Temp 98.0(TE); Pulse Ox 100% on R/A; aa5 16:30 BP 142 / 89; Pulse 78; Resp 18 S; Pulse Ox 98% on R/A; aa5 18:00 BP 149 / 85; Pulse 84; Resp 16 S; Temp 98.1(TE); Pulse Ox 100% on R/A; Pain 0/10; aa5 19:56 BP 139 / 89; Pulse 89; Resp 18 S; Pulse Ox 99% on R/A; as6 MDM: 13:40 Patient medically screened. ms3 21:53 Differential diagnosis: abnormal EKG, acute myocardial infarction, congestive heart ms3 failure pneumonia, stable angina, unstable angina. HEART Score: History: Slightly Suspicious (0), ECG: Non specific repolarization disturbance / LBTB / PM (1), Age: > or = 65 years (2), Risk Factors: 1 or 2 risk factors (1), Troponin: < or = 1 x Normal Limit (0), Total Score = 4. Data reviewed: vital signs, nurses notes, lab test result(s), EKG, radiologic studies. Data interpreted: classroom monitor: rate is 89 beats/min, rhythm is normal sinus rhythm, with no ectopy, Interpretation: normal rate. Test interpretation: by ED physician or midlevel provider: ECG. 04/19 13:41 Order name: Basic Metabolic Panel; Complete Time: 14:59 ms3 04/19 13:41 Order name: CBC with Diff; Complete Time: 14:59 ms3 04/19 13:41 Order name: LFT's; Complete Time: 14:59 ms3 04/19 13:41 Order name: NT PRO-BNP; Complete Time: 14:59 ms3 04/19 13:41 Order name: Troponin HS; Complete Time: 14:59 ms3 04/19 15:38 Order name: COVID-19 SARS RT PCR (Document "Date of Onset" if Symptomatic) bd 04/19 16:13 Order name: Urinalysis W/Microscopic EDTN 04/19 16:13 Order name: Thyroid Stimulating Hormone [facility] 04/19 16:13 Order name: UR CREAT EDTN 04/19 16:13 Order name: UR SODIUM EDTN 04/19 16:13 Order name: CBC with Automated Diff EDTN 04/19 16:13 Order name: CBC with Automated Diff [facility] 04/19 16:13 Order name: Comprehensive Metabolic Panel EDTN 04/19 16:13 Order name: Comprehensive Metabolic Panel [facility] 04/19 13:41 Order name: XRAY Chest (1 view); Complete Time: 15:11 ms3 04/19 13:41 Order name: EKG; Complete Time: 13:42 ms3 04/19 13:41 Order name: Cardiac monitoring; Complete Time: 13:49 ms3 04/19 13:41 Order name: EKG - Nurse/Tech; Complete Time: 13:49 ms3 04/19 13:41 Order name: IV Saline Lock; Complete Time: 14:01 ms3 04/19 13:41 Order name: Labs collected and sent; Complete Time: 14:02 ms3 04/19 13:41 Order name: O2 Per Protocol; Complete Time: 13:49 ms3 04/19 16:13 Order name: 60g Consistent Carbohydrate (ADA 1800/2000) EDMS 04/19 16:13 Order name: Magnesium EDMS 04/19 16:13 Order name: Magnesium EDMS 04/19 16:13 Order name: Magnesium EDMS 04/19 16:13 Order name: Magnesium EDMS 04/19 16:13 Order name: Renal Ultrasound-Complete EDMS 04/19 16:43 Order name: Urine Dipstick-Ancillary EDMS 04/19 17:44 Order name: T4 Free EDMS 04/19 13:41 Order name: O2 Sat Monitoring; Complete Time: 13:49 ms3 EC:28 Rate is 92 beats/min. Rhythm is regular. QRS [place] is Normal. TN interval is normal. ms3 Clinical impression: NSR w/ Non-specific ST/T Changes. Interpreted by me. Administered Medications: 17:04 Drug: Zofran (Ondansetron) 4 mg Route: IVP; Site: right antecubital; aa5 17:15 Follow up: Response: No adverse reaction aa5 Disposition Summary: 04/19/22 15:23 Hospitalization Ordered Hospitalization Status: Observation ms3 Provider: Fiorella Flores ms3 Location: Telemetry/MedSurg (observation) ms3 Condition: Stable ms3 Problem: new ms3 Symptoms: are unchanged ms3 Bed/Room Type: Standard ms3 Room Assignment: 431(04/19/22 19:44) mw Diagnosis - Shortness of breath ms3 - Chest pain, unspecified ms3 - Tachypnea, not elsewhere classified ms3 - Renal Insufficiency ms3 Forms: - Medication Reconciliation Form ms3 - SBAR form ms3 Signatures: Dispatcher [employer] EDTN Nilsa Mcdowell RN RN mw Ciarra Saba RN RN aa5 Catrachito Galarza RN RN jd3 Nate Jimenez DO DO ms3 Corrections: (The following items were deleted from the chart) 19:44 15:23 ms3 mw
--- NOTE | 2022-04-19 15:24 | ER ---
Nurse's Notes [facility] Name: Devang Whitney Age: 66 yrs Sex: Male : 1955 Arrival Date: 04/19/2022 Time: 13:27 Bed 6 Private MD: Diagnosis: Shortness of breath;Chest pain, unspecified;Tachypnea, not elsewhere classified;Renal Insufficiency Presentation: 04/19 13:31 Chief complaint: Patient states: 'I have been short of breath with the smallest of jd3 movements. chest pressure. flushed all over, nausea and vomiting. the only thing I did differently was that 5 days ago I drank a lot of alcohol and I have never done that before.". Coronavirus screen: At this time, the client does not indicate any symptoms associated with coronavirus-19. Ebola Screen: No symptoms or risks identified at this time. Initial Sepsis Screen: Does the patient meet any 2 criteria? No. Patient's initial sepsis screen is negative. Does the patient have a suspected source of infection? No. Patient's initial sepsis screen is negative. Risk Assessment: Do you want to hurt yourself or someone else? Patient reports no desire to harm self or others. Onset of symptoms was April 19, 2022. 13:31 Method Of Arrival: Wheelchair jd3 13:31 Acuity: POLLY 3 jd3 Triage Assessment: 13:33 General: Appears uncomfortable, Behavior is anxious. Pain: Complains of pain in chest jd3 Quality of pain is described as pressure. Respiratory: Reports shortness of breath at rest on exertion Airway is patent Respiratory effort is unlabored, gasping, Respiratory pattern is regular, symmetrical. 13:33 Derm: Skin is pale. jd3 Historical: - Allergies: 13:32 No Known Allergies; jd3 - Home Meds: 14:04 bupropion HCl 150 mg Oral Tb24 2 tabs once daily [Active]; lisinopril 40 mg Oral tab 1 aa5 tab once daily [Active]; amlodipine 5 mg tab once daily [Active]; quetiapine 100 mg oral tab at bedtime [Active]; - PMHx: 13:32 Vertigo; hypertension; Depressive disorder; jd3 14:04 Diabetes (lost weight and no longer diabetic); aa5 - Immunization history:: Adult Immunizations up to date, Client reports receiving the 2nd dose of the Covid vaccine, Flu vaccine is up to date. - Social history:: Smoking status: Patient denies any tobacco usage or history of. Screenin:01 Abuse screen: Denies threats or abuse. Nutritional screening: No deficits noted. aa5 Tuberculosis screening: No symptoms or risk factors identified. Fall Risk IV access (20 points). Total Broderick Fall Scale indicates No Risk (0-24 pts). Assessment: 13:50 General: Appears uncomfortable, Behavior is calm, cooperative. Pain: Complains of pain aa5 in chest Pain currently is 0 out of 10 on a pain scale. Quality of pain is described as pressure, Pain began 5 days ago Is intermittent. Neuro: Level of Consciousness is awake, alert, obeys commands, Oriented to person, place, time, situation. Cardiovascular: Heart tones S1 S2 present Rhythm is regular. Respiratory: Reports shortness of breath at rest since 5 days ago Airway is patent Respiratory effort is even, unlabored, Respiratory pattern is regular, symmetrical, Breath sounds are clear bilaterally. GI: Abdomen is round non-distended, Bowel sounds present X 4 quads. Abd is soft and non tender X 4 quads. Reports intolerance of fluids, intolerance of food, nausea, vomiting, since 5 days ago. : Reports decreased urinary output. EENT: No signs and/or symptoms were reported regarding the EENT system. Derm: Skin is clammy, Skin is normal, Skin temperature is cool. Musculoskeletal: Range of motion: intact in all extremities. 14:30 Reassessment: Pt sitting up in bed. . Neuro: Level of Consciousness is awake, alert, aa5 obeys commands, Oriented to person, place, time, situation. Respiratory: Reports shortness of breath Airway is patent Respiratory effort is even, unlabored, Respiratory pattern is regular, symmetrical. GI: Patient currently denies nausea. Derm: Skin is moist, Skin is normal, Skin temperature is warm. 15:30 Reassessment: Patient is alert, oriented x 3, equal unlabored respirations, skin aa5 warm/dry/pink. Patient states feeling better. Denies nausea, denies feeling clammy, continues to report SOB. 17:04 Reassessment: Patient is alert, oriented x 3, equal unlabored respirations, skin aa5 warm/dry/pink. Pt requesting food. Pt started on clear liquid diet at this time, premedicated with Zofran (see MAR). 18:00 Reassessment: Patient is alert, oriented x 3, equal unlabored respirations, skin aa5 warm/dry/pink. Pt tolerated clear liquid diet well, no vomiting reported or noted. . 18:00 Cardiovascular: Rhythm is sinus rhythm. aa5 19:56 General: pt reports of SOB on excursion, no other complaints or other concerns at this as6 time . Vital Signs: 13:33 BP 127 / 89; Pulse 99; Resp 25 S; Temp 98.4(TE); Pulse Ox 100% on R/A; Pain 0/10; jd3 14:30 BP 118 / 78; Pulse 82; Resp 22 S; Pulse Ox 100% on R/A; aa5 15:30 BP 151 / 78; Pulse 74; Resp 18 S; Temp 98.0(TE); Pulse Ox 100% on R/A; aa5 16:30 BP 142 / 89; Pulse 78; Resp 18 S; Pulse Ox 98% on R/A; aa5 18:00 BP 149 / 85; Pulse 84; Resp 16 S; Temp 98.1(TE); Pulse Ox 100% on R/A; Pain 0/10; aa5 19:56 BP 139 / 89; Pulse 89; Resp 18 S; Pulse Ox 99% on R/A; as6 ED Course: 13:27 Patient arrived in ED. as 13:32 Triage completed. jd3 13:34 Arm band placed on. jd3 13:36 Nate Jimenez DO is Attending Physician. ms3 13:36 Ciarra Saba, RN is Primary Nurse. aa5 13:50 Patient has correct armband on for positive identification. Placed in gown. Bed in low aa5 position. Call light in reach. Side rails up X2. Client placed on continuous cardiac and pulse oximetry monitoring. NIBP monitoring applied. 13:55 Initial lab(s) drawn, by me, sent to lab. Inserted saline lock: 20 gauge in right aa5 antecubital area, using aseptic technique. Blood collected. 14:47 XRAY Chest (1 view) In Process Unspecified. EDMS 15:22 Fiorella Flores MD is Hospitalizing Provider. ms3 18:47 No provider procedures requiring assistance completed. aa5 19:00 Report given to KAREN Wan and KAREN Connelly. aa5 19:11 Primary Nurse role handed off by Ciarra Saba RN mw2 19:56 Godwin Espinoza, KAREN is Primary Nurse. as6 20:33 Patient admitted, IV remains in place. intact, No redness/swelling at site. lg3 Administered Medications: 17:04 Drug: Zofran (Ondansetron) 4 mg Route: IVP; Site: right antecubital; aa5 17:15 Follow up: Response: No adverse reaction aa5 Outcome: 15:23 Decision to Hospitalize by Provider. ms3 20:33 Admitted to Med/surg accompanied by tech, via wheelchair, room 431, Report called to [facility] Pat 20:33 Condition: stable 20:33 Instructed on the need for admit. 21:33 Patient left the ED. lp1 Signatures: Dispatcher [employer] EDMS Lainey Jules as Ciarra Saba, RN RN aa5 Clarissa Rayo RN RN lp1 Catrachito Galarza RN RN jPaolo Sandoval mw2 [place], KAREN RN lg3 Nate Jimenez DO DO ms3 Godwin Espinoza, RN RN as6 Corrections: (The following items were deleted from the chart) 18:47 13:50 Derm: Skin is pink, warm \\T\\ dry. aa5 aa5
[2022-04-19] MEDS ORDERED: ONDANSETRON 4 MG/2 ML VIAL IV PRN (16:06)
[2022-04-19] MEDS ORDERED: MORPHINE 2 MG/ML SYR IV PRN (16:06)
[2022-04-19] MEDS ORDERED: ACETAMINOPHEN 500 MG TAB PO PRN (16:06)
[2022-04-19] MEDS ORDERED: ALBUTEROL 2.5 MG/3 ML NEB SOL NEB PRN (16:06)
--- NOTE | 2022-04-19 16:06 | P.HP ---
Certification for Inpatient Patient admitted to: Observation With expected LOS: <2 Midnights Patient will require the following post-hospital care: None Practitioner: I am a practitioner with admitting privileges, knowledge of patient current condition, hospital course, and medical plan of care. 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 Patient states he is unable to tie his shoes without feeling very fatigued. He denies any orthostatic dizziness or palpitation with activity. He denies any cough or sputum. He denies any fever or chills. On presentation in the ED his blood pressure was normal in the 130s. He was noted with elevated in creatinine to 2.68. EKG shows nonspecific ST segment depression. Chest x-ray shows no acute infiltrate or pulmonary edema. His troponin was normal at 13, his BNP was also normal at 77. He has been admitted for new onset acute kidney injury with unexplained exertional dyspnea. He denies any prior history of kidney injury or CKD in the past Home medications list reviewed: Yes - Past Medical/Surgical History Has patient received pneumonia vaccine in the past: No Diabetic: Yes -: Hypertension -: Diabetes mellitusdiet: -: Vertigo -: Depression - Social History Smoking Status: Never smoker Counseled patient to stop smoking for: less than 10 minutes Smoking therapy provided: No Patient receptive to therapy: No Alcohol use: Yes CD- Drugs: No Caffeine use: No Place of Residence: Home Review of Systems General: Weakness Physical Examination - Physical Exam General: Alert, In no apparent distress, Oriented x3, Cooperative HEENT: Atraumatic, Normocephalic, PERRLA Neck: Supple, 2+ carotid pulse no bruit, JVD not distended Respiratory: Clear to auscultation bilaterally, Normal air movement, Diminished Cardiovascular: Normal pulses, Regular rate/rhythm, Normal S1 S2 Gastrointestinal: Normal bowel sounds, Hypoactive, Soft and benign Musculoskeletal: No clubbing, No swelling Neurological: Normal gait, Normal speech, Normal strength at 5/5 x4 extr External genitalia: No edema, No lesions - Studies Laboratory Data (last 24 hrs) 04/19/22 13:54: WBC 6.6, Hgb 15.0, Hct 44.8, Plt Count 199 04/19/22 13:54: Sodium 136, Potassium 4.8, BUN 39 H, Creatinine 2.68 H, Glucose 139 H, Total Bilirubin 0.4, AST 21, ALT 35, Alkaline Phosphatase 61 Assessment and Plan - Advance Directives Does patient have a Living Will: No Does patient have a Durable POA for Healthcare: No - Code Status/Comfort Care Code Status Assessed: No Physician Review: Patient Assessed, Agree with Above Assessment and Plan Physician Review Additional Text: Impression Acute kidney injuryATN Exertional dyspneaunclear etiology, follow CTA to rule out PE when creatinine improved, vs Gastritis Hypertensioncontrolled Diet-controlled diabetes mellitus EKG changes History of partial nephrectomy Heavy Alcohol use Plan Obtain urine studies for fractional excretion of sodium Start gentle IV fluid for elevation in creatinine Hold lisinopril for now start Pepcid start ativan prn Continue to optimize blood pressure Fluid gentle IV hydration Obtain CTA in a.m. if improving creatinine follow-up plan for VQ scan Started empiric l Lovenox therapeutic dosing for now Avoid nephrotoxic Strict glycemic control GI prophylaxis Possible hospital stay for less than 48 hours
[2022-04-19] MEDS ORDERED: HYDRALAZINE HCL 20 MG/ML VIAL IV PRN (16:08)
[2022-04-19] MEDS: INSULIN -REGULAR HUMAN 50 UNIT/0.5 ML ML SQ SCH ×2 (16:30→21:00)
[2022-04-19 16:43] LABS: Urine Blood Negative (Negative); Urine Glucose Negative (Negative); Urine Protein 2+ (Negative); Urine Specific Gravity 1.015 (1.005-1.030); Urine pH 8.5 (5.0-7.0)
[2022-04-19] MEDS ORDERED: ONDANSETRON 4 MG/2 ML VIAL ONE (16:52)
[2022-04-19] MEDS ORDERED: LORazepam 2 MG/ML VIAL IV PRN (17:29)
[2022-04-19 17:31] LABS: Magnesium 2.4 mg/dL (1.8-2.4); Thyroid Stimulating Hormone 4.13 uIU/mL (0.360-3.740)
--- NOTE | 2022-04-19 18:33 | RAD REPORT ---
EXAM DESCRIPTION: US - Renal Ultrasound-Complete - 04/19/2022 5:59 pm CLINICAL HISTORY: arf, patient provided history renal mass resection COMPARISON: Angio Aorta For Dissection dated 04/08/2019 FINDINGS: The right kidney measures 11.4 x 5.8 x 4.6 cm. The left kidney measures 9.0 x 5.0 x 3.8 c m. Smaller left kidney would be consistent with partial nephrectomy. The [address] study cecilia wed a left renal mass. No hydronephrosis of either kidney. A 17 mm exophytic cyst projects from the r ight kidney. Cortical thickness with each kidney is normal. Bilateral increased renal parenchymal echogenicity is present likely from underlying medical renal disease. No gross bladder abnormality seen. IMPRESSION: Underlying medical renal disease is evident. No hydronephrosis or suspicious mass.
[2022-04-19 21:46] VITALS: O2SAT 99
[2022-04-19] MEDS: NA CHLORIDE 0.9% 1,000 ML IV SCH (22:16)
[2022-04-19] MEDS: FAMOTIDINE 20 MG TAB PO SCH (22:17)
[2022-04-19] MEDS: SODIUM BICARB 325 MG TAB PO SCH (22:17)
[2022-04-19] MEDS: PENTOXIFYLLINE ER 400 MG TAB PO SCH (22:17)
[2022-04-19 22:25] VITALS: BMI 27.1
[2022-04-19 22:56] LABS: Urine Appearance Clear (Clear); Urine Bilirubin Negative (Negative); Urine Blood Negative (Negative); Urine Color Yellow (Yellow); Urine Glucose Negative (Negative); Urine Protein Trace (Negative); Urine Specific Gravity 1.015 (1.005-1.030); Urine Urobilinogen 0.2 mg/dL (0.2-1.0)
[2022-04-19] MEDS ORDERED: ENOXAPARIN 100 MG/ML SYR SQ ONE (23:00)
[2022-04-19 23:02] LABS: Urine Microscopic Reflex ORDER UMIC
[2022-04-19 23:09] LABS: Urine Bacteria <20 /HPF (NONE SEEN); Urine RBC <5 /HPF (NONE SEEN); Urine Urothelial Cells <5 /HPF (NONE SEEN)
[2022-04-20] MEDS ORDERED: ZOLPIDEM TARTRATE 10 MG TABLET PO ONE (01:11)
[2022-04-20] MEDS: NA CHLORIDE 0.9% 1,000 ML IV SCH ×4 (03:00→21:13)
[2022-04-20 05:56] LABS: Lymphocytes % 32.4 % (15.3-44.8); MPV 8.7 fL (7.6-11.3)
[2022-04-20 06:13] LABS: Albumin 3.8 g/dL (3.4-5.0); Bilirubin Total 0.4 mg/dL (0.2-1.0); Magnesium 2.3 mg/dL (1.8-2.4); Potassium 4.2 mmol/L (3.5-5.1); Protein, Total 7.2 g/dL (6.4-8.2)
[2022-04-20] MEDS: INSULIN -REGULAR HUMAN 50 UNIT/0.5 ML ML SQ SCH ×4 (07:30→21:00)
[2022-04-20] MEDS ORDERED: PNEUMOCOCCAL VACCINE 0.5 ML IMVAC ONE (09:00)
--- NOTE | 2022-04-20 09:11 | EKG ---
Test Date: 2022-04-19 Test Time: 13:28:20 Guest Relations Manager: CRISTIANO MEASUREMENT RESULTS: Intervals: Rate: 92 LA: 160 QRSD: 78 QT: 346 QTc: 427 [place]: P: 39 LA: 160 QRS: -22 T: 13 INTERPRETIVE STATEMENTS: Normal sinus rhythm Nonspecific T wave abnormality Abnormal ECG Compared to ECG 04/08/2019 11:35:14 Sinus arrhythmia no longer present T-wave abnormality still present Electronically Signed On 04-20-22 09:08:18 CDT by Onur Blanco
[2022-04-20] MEDS: PENTOXIFYLLINE ER 400 MG TAB PO SCH ×2 (10:30→21:15)
[2022-04-20] MEDS: FAMOTIDINE 20 MG TAB PO SCH ×2 (10:31→21:14)
[2022-04-20] MEDS: SODIUM BICARB 325 MG TAB PO SCH ×2 (10:31→21:15)
--- NOTE | 2022-04-20 11:28 | P.PN ---
Subjective Date of Service: 04/20/22 Chief Complaint: Exertional dyspnea Subjective: No new changes, No C/O voiced (Feels better States no more nausea vomiting) Physical Examination - Vital Signs Temperature: 98 F Blood Pressure: 127/73 Pulse: 69 Respirations: 16 Pulse Ox (%): 98 - Physical Exam General: Alert, In no apparent distress, Oriented x3 HEENT: Atraumatic, Normocephalic, PERRLA Neck: 2+ carotid pulse no bruit, JVD not distended Respiratory: Clear to auscultation bilaterally, Normal air movement Cardiovascular: Normal pulses, Regular rate/rhythm, Normal S1 S2 Gastrointestinal: Normal bowel sounds, Soft and benign, Non-distended Musculoskeletal: No clubbing, No swelling Neurological: Normal speech, Normal strength at 5/5 x4 extr, Normal tone External genitalia: No edema, No lesions - Studies Laboratory Data (last 24 hrs) 04/19/22 13:54: Magnesium 2.4 D 04/19/22 13:54: WBC 6.6, Hgb 15.0, Hct 44.8, Plt Count 199 04/19/22 13:54: Sodium 136, Potassium 4.8, BUN 39 H, Creatinine 2.68 H, Glucose 139 H, Total Bilirubin 0.4, AST 21, ALT 35, Alkaline Phosphatase 61 Assessment And Plan Physician Review: Patient Assessed, Agree with Above Assessment and Plan Physician Review Additional Text: Impression Acute kidney injuryATN Baseline CKDgiven history of partial nephrectomy Exertional dyspneaunclear etiology, follow CTA to rule out PE when creatinine improved, vs Gastritis Hypertensioncontrolled Diet-controlled diabetes mellitus EKG changes History of partial nephrectomy History of alcohol abuse Plan Creatinine still rising to 2.9 Continue gentle IV fluid Continue to hold lisinopril Continue Pepcid for GERD Continue as needed Ativan given history of heavy alcohol abuse Follow-up pending renal sonogram No urgent need for CT now since resolved shortness of breath Switch to maintenance Lovenox dosing for DVT prophylaxis Avoid nephrotoxic Strict glycemic control GI prophylaxis Possible hospital stay for less than 48 hours 04/20/22 11:26
--- NOTE | 2022-04-20 18:53 | CON ---
Date of Consultation: 04/20/2022 Reason For Consultation: Elevated BUN and creatinine, renal mass loss. History Of Present Illness: This is a pleasant -bpdr-dob gentleman with significant past m edical history of hypertension, depression, diabetes diet controlled, lost 80 pounds since then, he i s off any diabetes medication, no retinopathy, no neuropathy, chronic kidney disease secondary to agustin al mass loss status post partial left nephrectomy secondary to benign tumor. According to the patien t, he does not know his baseline. Alcohol use. Depression. The patient came to the hospital [facility] of shortness of breath and fatigue. Upon arrival to the hospital, blood pressure was normal. The patient still has shortness of breath. Also, lab showed elevation in BUN and creatinine. Creatinine of 2.6 with GFR of 25. For that reason, we have been consulted. The patient denied taking any nons teroidal. No recent exposure to any IV contrast. No recent change in his medication. Reviewing the record for the patient back in March 2019; creatinine 1.1 with GFR of 62. Allergies: NO KNOWN DRUG ALLERGY. Past Medical History: Includes: 1.COPD. 2.Chronic kidney disease. 3.Partial left nephrectomy back in 2018. 4.Diabetes controlled with diet. 5.Hypertension controlled with diet. Family History: Positive for hypertension. Social History: Ex-smoker. Active alcohol. Denies drug abuse. Review of Systems: Head and Neck: No red eye. No ear pain. GI: No nausea. No vomiting. : No polyuria. No dysuria. No hematuria. Political Science Chair: Not applicable. Respiratory: Has shortness of breath. Cardiovascular: No orthopnea. No leg swelling. Endocrine: No polydipsia. Skin: No rash. Neuro: Generalized fatigue. Musculoskeletal: Generalized weakness. Home Medications: Include lisinopril, Ambien, bupropion, amlodipine. Current Medications In The Hospital: Include hydralazine, lorazepam. Breathing treatment. Physical Examination: Vital Signs: When I saw the patient, blood pressure 118/74, pulse of 72, afebrile. Reviewing the re cord, there is no hypotension. Chest: Clear to auscultation. Heart: S1, S2. Systolic murmur. Abdomen: Soft, nontender. Extremities: No edema. Neurological: Alert, oriented x3. No focality. Imaging Data: Renal ultrasound, 11.4/9 had left kidney mass back in 2019, apparently had resection. No obstruction. Assessment And Plan: 1.Acute kidney injury on chronic kidney disease, multifactorial, secondary to hypertension, nephrosc lerosis, superimposed with JOSESITO inhibitor use. Looked to me slightly on the dry side. I agree with h olding the JOSESITO inhibitor. We will continue hydration and we will send further workup for the patient and we will monitor closely. 2.Hypertension with the presence of acute kidney injury. Hold lisinopril. 3.Shortness of breath, possible secondary to chronic obstructive pulmonary disease/interstitial lung disease. 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 4.Diabetes, currently controlled. We will follow up with the primary. LAURO Voice ID: [id number] Report ID: [id number]
[2022-04-20] MEDS ORDERED: ZOLPIDEM TARTRATE 10 MG TABLET PO PRN (19:24)
[2022-04-20] MEDS ORDERED: ENOXAPARIN 100 MG/ML SYR SQ SCH (21:00)
[2022-04-20] MEDS ORDERED: DOCUSATE NA 100 MG CAP PO PRN (22:25)
[2022-04-21 05:23] LABS: Albumin 3.6 g/dL (3.4-5.0); Bilirubin Total 0.3 mg/dL (0.2-1.0); Magnesium 2.2 mg/dL (1.8-2.4); Phosphorus 3.6 mg/dL (2.5-4.9); Potassium 4.4 mmol/L (3.5-5.1); Protein, Total 6.8 g/dL (6.4-8.2); Uric Acid 8.6 mg/dL (3.5-7.2)
[2022-04-21] MEDS: INSULIN -REGULAR HUMAN 50 UNIT/0.5 ML ML SQ SCH ×2 (07:30→11:30)
[2022-04-21] MEDS ORDERED: AMLODIPINE 5 MG TAB PO SCH (09:00)
[2022-04-21] MEDS ORDERED: BUPROPION HCL XL 150 MG TAB PO SCH (09:00)
[2022-04-21 09:04] LABS: Rheumatoid Factor NEG (NEG)
[2022-04-21] MEDS: SODIUM BICARB 325 MG TAB PO SCH (09:42)
[2022-04-21] MEDS: PENTOXIFYLLINE ER 400 MG TAB PO SCH (09:42)
[2022-04-21] MEDS: FAMOTIDINE 20 MG TAB PO SCH (09:42)
--- NOTE | 2022-04-21 12:42 | P.DS ---
Admission Date: 04/19/22 Discharge Date: 04/21/22 Disposition: ROUTINE DISCHARGE Discharge Condition: FAIR Reason for Admission: Exertional dyspnea Brief History of Present Illness: 60-year-old male with past medical history of hypertension, depression, diet- controlled diabetes mellitus, history of right partial nephrectomy for benign tumor in the past presented because of exertional fatigue and shortness of breath with minimal activity with nausea after heavy alcohol intake -4 pints since last 3 days . Patient states he is unable to tie his shoes without feeling very fatigued. He denies any orthostatic dizziness or palpitation with activity. He denies any cough or sputum. He denies any fever or chills. On presentation in the ED his blood pressure was normal in the 130s. He was noted with elevated in creatinine to 2.68. EKG shows nonspecific ST segment depression. Chest x-ray shows no acute infiltrate or pulmonary edema. His troponin was normal at 13, his BNP was also normal at 77. He has been admitted for new onset acute kidney injury with unexplained exertional dyspnea. He denies any prior history of kidney injury or CKD in the past Hospital Course: Hospital course Patient was admitted for generalized weakness, epigastric pain, atypical chest pain as well as noted with acute kidney injury. Patient has history of prior right partial nephrectomy. His creatinine was noted elevated at 2.6 but worsened despite IV fluid to 2.9. He was started pentoxifylline on sodium bicarb and continued IV hydration creatinine improving to 2.4 today. He was ruled out for acute coronary syndrome. He was started on PPI for presumed gastritis. Onset of symptoms have preceded a bout of heavy alcohol intake. Alcohol cessation was advised. Case management consulted for help with outp atient alcohol rehab discussed. Patient is currently stable and shows to go home and will be discharged today. To follow-up with nephrology as outpatient - Physical Exam General: Alert, In no apparent distress, Oriented x3 HEENT: Atraumatic, Normocephalic, PERRLA Neck: 2+ carotid pulse no bruit, JVD not distended Respiratory: Clear to auscultation bilaterally, Normal air movement Cardiovascular: Normal pulses, Regular rate/rhythm, Normal S1 S2 Gastrointestinal: Normal bowel sounds, Soft and benign, Non-distended Musculoskeletal: No clubbing, No swelling Neurological: Normal speech, Normal strength at 5/5 x4 extr, Normal tone External genitalia: No edema, No lesions Vital Signs/Physical Exam: Temp Pulse Resp BP Pulse Ox 97.4 F 65 18 148/94 H 99 04/21/22 08:00 04/21/22 09:41 04/21/22 08:00 04/21/22 09:41 04/21/22 08:00 Laboratory Data at Discharge: WBC 6.3 K/uL (4.3-10.9) 04/20/22 05:35 Hgb 13.5 g/dL (13.6-17.9) L 04/20/22 05:35 Hct 40.0 % (39.6-49.0) 04/20/22 05:35 Plt Count 152 K/uL (152-406) D 04/20/22 05:35 Sodium 141 mmol/L (136-145) 04/21/22 04:40 Potassium 4.4 mmol/L (3.5-5.1) 04/21/22 04:40 BUN 35 mg/dL (7-18) H 04/21/22 04:40 Creatinine 2.42 mg/dL (0.55-1.3) H 04/21/22 04:40 Glucose 93 mg/dL (74-106) 04/21/22 04:40 Uric Acid 8.6 mg/dL (3.5-7.2) H 04/21/22 04:40 Phosphorus 3.6 mg/dL (2.5-4.9) 04/21/22 04:40 Magnesium Cancelled 04/21/22 16:15 Total Bilirubin 0.3 mg/dL (0.2-1.0) 04/21/22 04:40 AST 14 U/L (15-37) L 04/21/22 04:40 ALT 30 U/L (12-78) 04/21/22 04:40 Alkaline Phosphatase 58 U/L (45-117) 04/21/22 04:40 Home Medications: Amlodipine [Norvasc*] 5 mg PO DAILY 04/20/22 Bupropion HCl [Wellbutrin Xl] 300 mg PO DAILY 04/20/22 Zolpidem Tartrate [Ambien*] 10 mg PO BEDTIME PRN PRN 04/20/22 Famotidine [Pepcid*] 20 mg PO BID #60 tab 04/21/22 Na Bicarb Tab [Sodium Bicarb 325 MG Tab*] 650 mg PO BID #60 tab 04/21/22 New Medications: Famotidine [Pepcid*] 20 mg PO BID #60 tab Na Bicarb Tab [Sodium Bicarb 325 MG Tab*] 650 mg PO BID #60 tab Diet: Renal Activity: Ad marya Followup: Beatrice Curiel DO [Primary Care Provider] - Berta Kinney MD [ACTIVE - CAN ADMIT] - 1 Week Time spent managing pt's care (in minutes): 35
[2022-04-21 13:26] VITALS: BP 140/78; TEMP 97.1
--- NOTE | 2022-04-21 17:46 | PN ---
Date of Progress Note: 04/21/2022 Subjective: The patient was admitted with acute kidney injury. The patient had chronic kidney disea se, status post left partial nephrectomy back in 2019. His acute kidney injury was prerenal. The pa lory was started on hydration. Kidney function has started been improving. Physical Examination: Vital Signs: Blood pressure 148/94, pulse of 65, afebrile. Had urine output of 900. Chest: Clear to auscultation. Heart: S1, S2. Regular. Abdomen: Soft, nontender. Extremities: No edema. Laboratory Data: WBC 6.3, H and H 13.5/40. Sodium 141, potassium 4.4, bicarb 27, BUN 35, creatinine 2.4 trending down, GFR of 29, uric acid 8.6, calcium 8.6. Serum protein electrophoresis is still pe nding. PTH 85. PC ratio is not done yet. Current Medications: The patient on include Lovenox, albuterol, amlodipine 5 mg, hydralazine p.r.n., Ambien, sodium bicarb 650 b.i.d., Pepcid, normal saline. Assessment And Plan: 1.Acute kidney injury secondary to prerenal, superimposed with hyperglycemia, glucose diuresis on ch ronic kidney disease, continued to recover. The patient looked to me started to be in normal volume. I am going to go ahead and decrease his IV fluid to 50 per hour and we will continue to monitor. 2.Acidosis, recovered resolved. Discontinue bicarb. 3.Hypertension, controlled, optimal. Continue to monitor. 4.Chronic kidney disease secondary to renal mass loss, left nephrectomy. We will continue to monitor the patient. 5.Alcohol intoxication as by primary. JOSHUA/JOSEL Voice ID: [id number] Report ID: [id number]
[2022-04-24 15:12] LABS: Albumin, (SPE) 3.6 g/dL (3.8-4.8); Alpha-1-Globulins 0.3 g/dL (0.2-0.3); Alpha-2-Globulins 0.7 g/dL (0.5-0.9); Gamma Globulins 0.8 g/dL (0.8-1.7); INTERPRETATION REPORT
[2022-04-24 16:57] LABS: HIV AG/AB 4TH GEN Non-reactive (Non-reactive)
[2022-04-25 00:07] LABS: Vitamin D 1,25-Dihydroxy Total 23 pg/mL (18-72); Vitamin D,1,25-OH2, D2 <8 pg/mL
== END 2022-04-21 16:33 | disposition home or self-care (01) ==
LOC: ER 13:21 → ERHOLD 16:06 → 4TH 19:59
PROVIDERS: ADMIT Internal Medicine; ATTEND Internal Medicine
DX: N17.0 Acute kidney failure with tubular necrosis (principal); I12.9 Hypertensive chronic kidney disease with stage 1 through stage 4 chronic kidney disease, or unspecified chronic kidney disease; E11.22 Type 2 diabetes mellitus with diabetic chronic kidney disease; E11.65 Type 2 diabetes mellitus with hyperglycemia; N18.9 Chronic kidney disease, unspecified; R07.89 Other chest pain; E87.2 Acidosis; R06.00 Dyspnea, unspecified; R10.13 Epigastric pain; I10 Essential (primary) hypertension; F32.A Depression, unspecified; J44.9 Chronic obstructive pulmonary disease, unspecified; F10.129 Alcohol abuse with intoxication, unspecified; K21.9 Gastro-esophageal reflux disease without esophagitis; R01.1 Cardiac murmur, unspecified; Z90.5 Acquired absence of kidney; Z87.891 Personal history of nicotine dependence; Z79.899 Other long term (current) drug therapy; Z20.822 Contact with and (suspected) exposure to COVID-19
CPT/HCPCS: 36415; 71045; 76770; 80048; 80053; 80069; 80076; 81003; 81015; 82550; 82570; 82652; 82947; 83520; 83735; 83880; 83970; 84165; 84300; 84439; 84443; 84484; 84550; 85025; 86021; 86038; 86160; 86225; 86430; 86704; 86705; 86706; 86803; 87340; 87389; 93005; 96374; 99285; G0378; J1650; J2405; J7030; U0003